=== PATIENT | male | born 1990 | race Caucasian/White ===

== ENCOUNTER 2022-09-03 13:31 | Emergency (ER) | payer BC, OTHER ==
[2022-09-03 15:44] VITALS: BP 132/82; PULSE 69; O2SAT 99
--- NOTE | 2022-09-03 16:15 | ERPHSYRPT ---
- History of Present Illness Time Seen by Provider: 09/03/22 13:55 Source: patient Exam Limitations: no limitations Patient Subjective Stated Complaint: C/O right sided jaw/face pain. 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 He indicates they were practicing choke holds on him Wednesday evening. Patient started having some pain on Wednesday. Pain was worse yesterday. Today patient noticed and underbite with his lower jaw and he is unable to open his mouth all of the way on the right side. Triage Nursing Assessment: Patient is alert and oriented. No SOB. Patient speaking out of the left corner of his mouth. Did not have patient open and close mouth or attempt to manipulate mouth/jaw in any way at this time for fear of causing further injury. Physician History: 31 years old male presented in the ER with chief complaint of right lower jaw/TM joint area pain which started after he was practicing [employer] choking hold 3 days ago and next morning woke up with mild pain on opening closing of jaw and since yesterday having increasing pain and today was having difficulty opening the jaw with tenderness to palpation on right face. No difficulty speech. Did not notice any swelling. Denies any neck pain. No tooth ache. Timing/Duration: abrupt onset, days (2) Severity: mild, moderate ENT Location: facial Prearrival Treatment: no prearrival treatment Associated Symptoms: jaw pain Allergies/Adverse Reactions: No Known Drug Allergies Allergy (Verified 09/03/22 13:38) Hx Tetanus, Diphtheria Vaccination/Date Given: Yes Hx Influenza Vaccination/Date Given: No Hx Pneumococcal Vaccination/Date Given: No Immunizations Up to Date: Yes Travel Risk - International Travel Have you traveled outside of the country in past 3 weeks: No - Coronavirus Screening Are you exhibiting any of the following symptoms?: No Close contact with a COVID-19 positive Pt in past 14-21 Days: No - Vaccine Status Have you recieved a Covid-19 vaccination: Yes Ship[employer]: [employer] - Review of Systems Constitutional: No Symptoms Eyes: No Symptoms Ears, Nose, & Throat: Mouth Pain Respiratory: No Symptoms Cardiac: No Symptoms Abdominal/Gastrointestinal: No Symptoms Genitourinary Symptoms: No Symptoms Musculoskeletal: Joint Pain Skin: No Symptoms Psychological: No Symptoms Hematologic/Lymphatic: No Symptoms - Past Medical History Pertinent Past Medical History: Yes GI Medical History: Irritable Bowel - Past Surgical History Past Surgical History: No - Social History Smoking Status: Never smoker Exposure to second hand smoke: No Drug Use: none Patient Lives Alone: No - Nursing Vital Signs Nursing Vital Signs: Initial Vital Signs Temperature 97.7 F 09/03/22 13:38 Pulse Rate 80 09/03/22 13:38 Respiratory Rate 18 09/03/22 13:38 Blood Pressure 123/95 09/03/22 13:38 O2 Sat by Pulse Oximetry 97 09/03/22 13:38 Pain Scale Pain Intensity 6 - Physical Exam General Appearance: no apparent distress, alert Eye Exam: bilateral eye: normal inspection, PERRL, EOMI Ear Exam: bilateral ear: auricle normal, canal normal, TM normal Nasal Exam: normal inspection Throat Exam: normal, pharynx normal, moist mucus membranes, No dental tenderness (Tenderness right TMJ area and above angle of mandible. No crepitus. 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 CT facial bones negative for fracture but does have some widening of TMJ area with surrounding edema. Recommended NSAIDs, intermittent ice application and outpatient comb machine operator/maxillofacial follow-up. Discussed signs symptoms of worsening needing return to ER which he seems understanding. Stable for discharge. Counseled pt/family regarding: diagnosis, need for follow-up, rad results - Departure Departure Disposition: Home Clinical Impression: Sprain and strain of temporomandibular joint Condition: Stable Critical Care Time: No Referrals: DHEERAJ BIRD [Primary Care Provider] - Follow Up with PCP/3 days Instructions: Temporomandibular Joint (TMJ) Disorders (DC) Additional Instructions: Take Tylenol/ibuprofen as needed. Follow-up with comb machine operator for reevaluation. Return to ER for worsening pain swelling, difficulty opening/closing mouth. Prescriptions: Ibuprofen 600 mg PO Q6HPRN PRN 10 Days #20 tablet PRN Reason: Pain
--- NOTE | 2022-09-03 19:03 | XRAY ---
Indication: Right jaw/TMJ pain following injury. Multiple contiguous axial images obtained through the facial bones. Sagittal and coronal reformatted images obtained. Comparison: None TMJ bilaterally symmetric. No acute fracture, suspicious bony lesions, or radiopaque foreign body. Orbits including roof, mesa, and floors intact. Paranasal sinuses and nasal passages are clear. Moderate nasal septal deviation to the left. Visualized cervical spine intact with minimal/mild C4-C6 degenerative changes. Visualized noncontrasted soft tissues including orbits in base of brain are unremarkable. Impression: Nasal septal deviation and cervical degenerative changes. Remaining CT facial bones negative. Comment: Preliminary interpretation made by C. No critical discrepancy.
== END 2022-09-03 16:18 | disposition home or self-care (01) ==
LOC: ED 13:31
DX: S03.41XA Sprain of jaw, right side, initial encounter (principal); X50.1XXA Overexertion from prolonged static or awkward postures, initial encounter; Y93.75 Activity, martial arts
CPT/HCPCS: 70486; 99283